=== PATIENT | male | born 1975 | race Two or more races ===

== ENCOUNTER 2017-02-26 05:08 | Inpatient (IN) | payer OTHER ==
[~2017-02-26] VITALS: Ht 172.7 cm; Wt 85.7 kg
[2017-02-26] VITALS (14 sets, daily range): BP systolic 117–136; BP diastolic 74–96
[~2017-02-26 05:08] MED LIST: NICOMIDE TABLE1 EAC1 PO
[2017-02-26] MEDS ORDERED: ceFAZolin sod 2 GM in D5W 55 ML IVPB ONE (06:00)
[2017-02-26] MEDS ORDERED: LR 1000ml 1,000 ML IVLG SCH (06:11)
--- NOTE | 2017-02-26 06:11 | Anethesia Preoperative Eval ---
Anesthesia Pre-op PMH/ROS General Date of Evaluation: Feb 26, 2017 Time of Evaluation: 06:56 Anesthesiologist: Olamide ASA Score: ASA 2 Mallampati Score Class I : Soft palate, uvula, fauces, pillars visible Class II: Soft palate, uvula, fauces visible Class III: Soft palate, base of uvula visible Class IV: Only hard plate visible Mallampati Classification: Class II Surgeon: Adryan Diagnosis: Back Pain Surgical Procedure: ALIF L5-S1, PSF L5-S1 Anesthesia History: none Family History: no anesthesia problems Allergies: Coded Allergies: METHYLISOTHIAZOLINONE (Verified Allergy, Severe, 02/26/17) skin rash BACITRACIN (Verified Allergy, Intermediate, 02/26/17) SKIN RASH COBALT CHLORIDE (Verified Allergy, Intermediate, 02/26/17) SKIN RASH SULFA (SULFONAMIDE ANTIBIOTICS) (Verified Allergy, Unknown, 03/24/15) Medications: see eMAR Past Medical History Cardiovascular: Reports: HTN Pulmonary: Reports: asthma PSxH Narrative: Lumbar Spine Sx 2015 Anesthesia Pre-op Phys. Exam Physician Exam Last Vital Signs Date Time Temp Pulse Resp B/P (MAP) Pulse Ox O2 Delivery O2 Flow Rate FiO2 02/26/17 05:59 97.6 60 20 117/74 100 Room Air Constitutional: NAD Neurologic: CN 2-12 intact Cardiovascular: RRR Respiratory: CTA Gastrointestinal: S/NT/ND Airway Exam Mallampati Score: Class II MO: full ROM: full Teeth: intact Anesthesia Pre-op A/P Risk Assessment & Plan Assessment: ASA 2 Plan: GA, BIS, Glidescope Status Change Before Surgery: No Pre-Antibiotics Dru grams Ancef IV Given Within 1 Hr of Incision: Yes Time Given: 07:11 Ike Quiñonez MD Feb 26, 2017 06:11
[2017-02-26] MEDS ORDERED: Ketorolac 30mg Inj IV PRN (06:15)
[2017-02-26] MEDS ORDERED: DiphenhydrAMINE 50mg/ml Inj IVP PRN (06:15)
[2017-02-26] MEDS ORDERED: Thrombin 5000 units TOPIC ONE (06:15)
[2017-02-26] MEDS ORDERED: Atropine Inj 1mg/10ml Syr IV PRN (06:15)
[2017-02-26] MEDS ORDERED: Midazolam 2mg/2ml Inj IVP PRN (06:15)
[2017-02-26] MEDS ORDERED: Norco 7.5mg/325mg tab ORAL PRN ×3 (06:15→07:15)
[2017-02-26] MEDS ORDERED: Norco 5mg/325mg tab ORAL PRN (06:15)
[2017-02-26] MEDS ORDERED: oxyCODONE HCL/Acetaminophen 5/325mg ORAL PRN (06:15)
[2017-02-26] MEDS ORDERED: Metoclopramide 10mg/2ml Inj IVP PRN ×2 (06:15→07:15)
[2017-02-26] MEDS ORDERED: fentaNYL 100 mcg/2 mL IV PRN (06:15)
[2017-02-26] MEDS ORDERED: LORazepam Inj 2mg/ml 1ml IV PRN (06:15)
[2017-02-26] MEDS ORDERED: Hydromorphone 0.5mg/0.5ml inj IVP PRN (06:15)
[2017-02-26] MEDS ORDERED: Vancomycin 1gm inj IVPB ONE (06:15)
[2017-02-26] MEDS ORDERED: Ketorolac 60mg Inj IV PRN (06:15)
[2017-02-26] MEDS ORDERED: Bacitracin 50000 Units Vial ONE (06:15)
[2017-02-26] MEDS ORDERED: Surgicel 4in x 8in TOPIC ONE (06:17)
[2017-02-26] MEDS ORDERED: Bupivacaine 0.5% Inj 30 ml vial INJ ONE (06:17)
[2017-02-26] MEDS ORDERED: PRAVASTATIN SOD10 M1 ORAL (06:22)
[2017-02-26] MEDS ORDERED: CEPHALEXIN500 M1 ORAL (06:22)
[2017-02-26] MEDS ORDERED: Heparin 5000 units/ml inj ONE (06:30)
[2017-02-26] MEDS ORDERED: Acetaminophen (Non formulary) 100 ML IV ONE (06:51)
[2017-02-26] MEDS ORDERED: Glycopyrrolate 0.2mg/ml 1ml Vial ONE (07:00)
[2017-02-26] MEDS ORDERED: Lidocaine 1% Plain 30 ml INJ ONE (07:00)
[2017-02-26] MEDS ORDERED: Neostigmine 1mg/ml 10ml Inj ONE (07:00)
[2017-02-26] MEDS ORDERED: LR 1000ml ONE (07:00)
[2017-02-26] MEDS ORDERED: Sterile Water Irrig 1000ml IRRIG ONE (07:00)
[2017-02-26] MEDS ORDERED: Propofol 1,000mg/ 100ml btl IV ONE (07:00)
[2017-02-26] MEDS ORDERED: Zemuron 50mg/5ml Inj IV ONE (07:00)
[2017-02-26] MEDS ORDERED: fentaNYL 100 mcg/2 mL IV ONE (07:00)
[2017-02-26] MEDS ORDERED: NS Irrig 1000ml ONE (07:00)
[2017-02-26] MEDS ORDERED: Labetalol 5mg/ml 20ml vial IV ONE (07:00)
[2017-02-26] MEDS ORDERED: Dexamethasone 4mg/ml vial ONE (07:00)
--- NOTE | 2017-02-26 07:10 | Pre-Procedure Note/Attestation ---
Pre-Procedure Note/Attestation Complete Prior to Procedure Planned Procedure: not applicable Procedure Narrative: Stage 1 Anterior Lumbar Interbody Fusion of L5S1 with bone morphogenetic protein and allograft Stage 2 Posterior newton griffin osteotomy pedicle screw fixation Indications for Procedure Pre-Operative Diagnosis: herniation L5S1 Attestation I attest that I discussed the nature of the procedure; its benefits; risks and complications; and alternatives (and the risks and benefits of such alternatives ), prior to the procedure, with the patient (or the patient's legal footwear sales representative). I attest that, if there was a reasonable possibility of needing a blood transfusion, the patient (or the patient's legal footwear sales representative) was given the [place] [employer] standardized written summary, pursuant to the Gustavo Deshler Blood Safety Act ([place] Health and Safety Code # 1645, as amended). I attest that I re-evaluated the patient just prior to the surgery and that there has been no change in the patient's H&P, except as documented below: FEDE SONI Feb 26, 2017 07:10
--- NOTE | 2017-02-26 07:12 | Brief Operative Note ---
Immediate Post Operative Note Operative Note Chief Complaint: back and leg pains left sided Pre-op Diagnosis: herniation L5S1 Procedure: Stage 1 Anterior Lumbar Interbody Fusion of L5S1 with bone morphogenetic protein and allograft Stage 2 Posterior newton griffin osteotomy pedicle screw fixation Post-op Diagnosis: same as pre-op Findings: consistent w/pre-op dx studies Surgeon: NAE Remote Coders: Danish Weldon Anesthesia: general Specimen: none Complications: none Estimated Blood Loss: minimal Drains: none Implant(s) used?: Yes - Nuvasive brigjulio, synthes 4x45 mm screws FEDE SONI Feb 26, 2017 07:12
[2017-02-26] MEDS ORDERED: Naloxone 0.4mg/ml Inj IVP PRN (07:15)
[2017-02-26] MEDS ORDERED: HYDROmorphone 1mg/ml Carpuject IVP PRN (07:15)
[2017-02-26] MEDS ORDERED: Milk of Magnesia 30ml Ud ORAL PRN (07:15)
[2017-02-26] MEDS ORDERED: HYDROmorphone 1mg/ml Carpuject SUBQ PRN (07:15)
[2017-02-26] MEDS ORDERED: Chloraseptic Spray 20mL Bottle ORAL PRN (07:15)
--- NOTE | 2017-02-26 07:43 | Immediate Post-Op Evaluation ---
Immediate Post-Op Evalulation Immediate Post-Op Evalulation Procedure: ALIF L5-S1, PSF L5-S1 Date of Evaluation: Feb 26, 2017 Time of Evaluation: 11:58 IV Fluids: 1000 LR Blood Products: 0 Estimated Blood Loss: 75 Urinary Output: 200 Blood Pressure Systolic: 135 Blood Pressure Diastolic: 74 Pulse Rate: 87 Respiratory Rate: 16 O2 Sat by Pulse Oximetry: 100 Temperature (Fahrenheit): 97.9 Pain Score (1-10): 3 Nausea: No Vomiting: No Complications 0 Patient Status: awake, reacts, patent, extubated, none Hydration Status: adequate Dru Grams Ancef IV Given Within 1 Hr of Incision: Yes Time Given: 07:11 Ike Quiñonez MD Feb 26, 2017 07:43
--- NOTE | 2017-02-26 12:08 | Diagnostic Imaging Report ---
Indication: PAIN, intraoperative Technique: Intraoperative images Comparison: None Findings: Initial image demonstrates surgical needle projected at the anterior aspect of what is presumably L5-S1 disc. Subsequent images document anterior fusion and posterior fusion at L5-S1 Impression: Intraoperative imaging, as described
--- NOTE | 2017-02-26 13:00 | Operative Note - Dictated ---
DATE OF OPERATION: 02/26/2017 SURGEONS: 1. Manpreet Weldon M.D. (for the approach). 2. Miguel Cornelius M.D. (for the spine procedure). ANESTHESIOLOGIST: Ike Quiñonez M.D. ANESTHESIA: General endotracheal. PREOPERATIVE DIAGNOSIS: Disk disease at L5-S1. POSTOPERATIVE DIAGNOSIS: Disk disease at L5-S1. OPERATIVE PROCEDURES: 1. Muscle sparing anterior abdominal extraperitoneal approach for anterior lumbar interbody fusion, L5-S1 (one interspace). 2. Mobilization of left iliac artery. 3. Mobilization of left iliac vein. 4. Exposure of the anterior surface of the spine at L5-S1 (one interspace). INFORMED CONSENT: The procedure of the anterior access for an anterior interbody fusion was explained in detail to the patient preoperatively and repeated in the preoperative holding area by myself and Dr. Cornelius. The risks including hemorrhage, infection, vascular injury, ureteral injury, nerve injury, visceral injury, retrograde ejaculation, and lymphedema were explained in detail. The patient stated that he understood the procedure, its rationale and risks. He had no further questions and accepted the procedures outlined above. Background information, indications for surgery, operative findings, and specimens removed will be contained in Dr. Cornelius's operative report. OPERATIVE FINDINGS PERTINENT TO THE ACCESS: All retroperitoneal structures were normal. OPERATIVE PROCEDURE: The patient was brought to the operating room in stable condition. Monitoring was instituted with arterial line, ECG, O2 saturation monitor, and blood pressure cuff. A pulse oximeter was placed on the left foot to monitor circulation to the left lower extremity. The patient was induced with anesthesia without any difficulty. The patient was prepared and draped in sterile fashion. Using x-ray and fluoroscopy, the level of the L5-S1 disk was marked on the skin. A left lower quadrant incision was performed from the midline to the edge of the left rectus muscle, approximately one-third [address] the way up from the pubis to the umbilicus. The incision was carried down through the subcutaneous tissue to the rectus fascia. The rectus fascia was incised with the cautery with extension into the fibers of the external oblique aponeurosis. Elevation of the rectus fascia away from the anterior surface of the muscle was carried out for a distance of approximately 5 cm both cephalad and caudad. This allowed for retraction of the rectus muscle both medially and laterally in order to obtain direct A-P access to the spine. The inferior epigastric vessels were identified and preserved. The posterior rectus sheath did not require any incision and was carefully from the peritoneum, taking care not to enter the peritoneal cavity. The peritoneum was bluntly dissected away from the undersurface of the internal oblique muscle. Careful blunt dissection was used to elevate the peritoneum anteriorly until the psoas muscle was identified. The ureter was also identified and swept upwards with the peritoneum and its contents. Further dissection was used to expose the anterior surface of the left common iliac artery. A Jaquez retractor was placed into the retroperitoneum lateral to the rectus muscle. A lap sponge was inserted over the psoas muscle and pushed superiorly to keep the abdominal contents off the way with a Lenox retractor. Careful sharp and blunt dissection was used to expose the entire length of the common iliac artery to its origin at the aortic bifurcation. Dissection along the medial wall of the artery was carried out to expose the common iliac vein, which lies under and slightly to the right of the artery. With extreme care, the vein was also exposed in its entirety. Deep dissection was carried out to expose the L5-S1 disk space. The middle sacral vessels were identified and carefully ligated and cauterized proximally and distally and transected. Any other venous tributaries in the area were controlled with clips and/or cautery and then transected. Mobilization of the iliac vessels below the bifurcation was carried out for proper visualization of the anterior surface of the spine. This was done with careful blunt dissection in order to peel away the left common iliac vein from the anterior longitudinal ligament, to which it was very closely approximated. The dissection along the anterior surface of the spine was carried out bluntly and without the use of cautery to preserve the sympathetic plexus, which lies anteriorly, overlying the aortic bifurcation and extends inferiorly towards the sacral hollow. After proper skeletonization and mobilization of the vessels and preservation of all vital structures, the Jaquez-Katherin retractor combination was removed and the table-held retractor was deployed. The retractor blades were inserted, with rectus muscle now retracted laterally, first on the right to expose that side of the disk space, and then on the left to keep the iliac vessels out of the way. Third and fourth retractor blades were placed inferiorly and superiorly. This allowed complete exposure and direct A-P approach to the anterior surface of the spine at L5-S1. A needle was inserted into the disk and an x-ray was taken to verify the midline and the level. Dr. Cornelius proceeded to perform the diskectomy, partial vertebrectomy, and fusion using the appropriate technique and hardware. After the diskectomy and fusion were completed, irrigation with antibiotic solution was carried out. The retractor blades were removed and the integrity of the iliac vessels was checked to make sure that there was no tear or thrombosis of the vein and that there was adequate flow through the artery with no evidence of spasm or thrombosis. A further check for hemostasis was made and the integrity of the ureter was verified. The peritoneum was allowed to return to its anatomical position. The anterior rectus sheath was closed with a continuous suture of #1 Vicryl. The subcutaneous tissue and skin were closed with a continuous subcuticular suture of 2-0 Vicryl. Steri-Strips and a sterile dressing were applied. Final sponge, needle, and instrument counts were verified as correct x2. Manual and visual sweeps were correct. Estimated blood loss was minimal and approximately 15 mL. There were good dorsalis pedis and posterior tibial pulses in both feet. The pulse oximeter on the left foot showed 100% oxygen saturation with a triphasic waveform consistent with a preoperative baseline. The patient remained in the operating room, under anesthesia in a stable condition for further surgery. Manpreet Weldon M.D. DR: RONEL JOB#: [id number] CC: Miguel Cornelius M.D.; Fax#: [phone] [facility]
[2017-02-26] MEDS: Dexamethasone 4mg/ml vial IVP SCH ×2 (14:30→21:54)
[2017-02-26] MEDS: NS w/KCl 20mEq 1,000 ML IV SCH ×2 (14:30→23:47)
[2017-02-26] MEDS: ceFAZolin sod 1 GM in D5W 55 ML IV SCH ×2 (15:32→23:47)
[2017-02-26] MEDS: Docusate 100mg cap ORAL SCH (17:21)
--- NOTE | 2017-02-26 17:42 | Consultation ---
History of Present Illness General Date patient seen: Feb 26, 2017 Time patient seen: 17:41 Chief Complaint: intractable lower back pain w/ radiculopathy Referring physician: Dr. Cornelius Reason for Consultation: med mgmt Present Illness HPI 42y/o male with pmh of HLD, lumbar disc herniation L5-S1 who presents s/p Stage 1 Anterior Lumbar Interbody Fusion of L5S1 with bone morphogenetic protein and allograft Stage 2 Posterior newton griffin osteotomy pedicle screw fixation earlier today. Postop pain appears well-controlled. Denies f/c, n/v, d/c, chest pain, SOB. Allergies: Coded Allergies: METHYLISOTHIAZOLINONE (Verified Allergy, Severe, 02/26/17) skin rash BACITRACIN (Verified Allergy, Intermediate, 02/26/17) SKIN RASH COBALT CHLORIDE (Verified Allergy, Intermediate, 02/26/17) SKIN RASH SULFA (SULFONAMIDE ANTIBIOTICS) (Verified Allergy, Unknown, 03/24/15) Medication History Scheduled Pravastatin Sod (Pravastatin Sod), 10 MG ORAL BEDTIME, (Reported) Scheduled PRN Hydrocodone Bit/Acetaminophen 10-325* (Abell 10-325*), 1 TAB ORAL Q8HR PRN for For Pain, (Reported) Discontinued Medications Cephalexin* (Cephalexin*), 500 MG ORAL EVERY 6 HOURS, (Reported) Discontinued Reason: Pt stopped taking med Lmefolate/B3/Jovon/Zn/Nimco/Chrom (Nicomide Tablet), 1 EACH PO BID, (Reported) Discontinued Reason: Pt stopped taking med Patient History History Provided By: Patient, Medical Record, PMD Healthcare decision maker MAGDY- Resuscitation status Full Code Advanced Directive on File Past Medical/Surgical History Past Medical/Surgical History: (1) HLD (hyperlipidemia) (2) HNP (herniated nucleus pulposus), lumbar Family History Family History: (1) No significant family history Social History Social History: (1) No significant social history Review of Systems ROS Narrative CONSTITUTIONAL: No weight loss, fever, chills, weakness or fatigue. HEENT: Eyes: No visual loss, blurred vision, double vision or yellow sclerae. Ears, Nose, Throat: No hearing loss, sneezing, congestion, runny nose or sore throat. SKIN: No rash or itching. CARDIOVASCULAR: No chest pain, chest pressure or chest discomfort. No palpitations or edema. RESPIRATORY: No shortness of breath, cough or sputum. GASTROINTESTINAL: No anorexia, nausea, vomiting or diarrhea. No abdominal pain or blood. NEUROLOGICAL: No headache, dizziness, syncope, paralysis, ataxia, numbness or tingling in the extremities. No change in bowel or bladder control. MUSCULOSKELETAL: No muscle, back pain, joint pain or stiffness. HEMATOLOGIC: No anemia, bleeding or bruising. LYMPHATICS: No enlarged nodes. No history of splenectomy. PSYCHIATRIC: No history of depression or anxiety. ENDOCRINOLOGIC: No reports of sweating, cold or heat intolerance. No polyuria or polydipsia. ALLERGIES: No history of asthma, hives, eczema or rhinitis. Physical Exam Physical Exam Narrative General: alert, cooperative, no distress, appears stated age Head: normocephalic, without obvious abnormality, atraumatic Eyes: conjunctivae/corneas clear. PERRL, EOM's intact Throat: lips, mucosa, and tongue normal. MMM Neck: supple, symmetrical, trachea midline, and no JVD Lungs: clear to auscultation bilaterally Heart: regular rate and rhythm, S1, S2 normal, no murmur, click, rub or gallop Abdomen: soft, non-tender, non-distended, bowel sounds normal; no masses or organomegaly Extremities: extremities normal, atraumatic, no cyanosis or edema Pulses: 2+ and symmetric Skin: skin color, texture, turgor normal; dressing c/d/i Neurologic: grossly normal, no focal deficits Last 24 Hour Vital Signs Date Time Temp Pulse Resp B/P (MAP) Pulse Ox O2 Delivery O2 Flow Rate FiO2 02/26/17 16:00 98.1 97 19 133/86 99 Nasal Cannula 3.0 02/26/17 13:30 98.3 93 19 136/90 99 Nasal Cannula 3.0 02/26/17 13:25 98.0 82 17 129/78 100 Nasal Cannula 3.0 02/26/17 13:00 82 16 128/86 100 Nasal Cannula 3.0 02/26/17 12:45 83 15 124/82 100 Nasal Cannula 3.0 02/26/17 12:32 98.0 02/26/17 12:30 82 14 132/96 100 Nasal Cannula 3.0 02/26/17 12:15 83 15 130/79 100 Nasal Cannula 3.0 02/26/17 12:00 82 16 120/89 100 Simple Mask 6.0 02/26/17 11:55 78 15 121/91 100 Simple Mask 6.0 02/26/17 11:50 87 17 129/94 100 Simple Mask 6.0 02/26/17 11:48 87 16 100 02/26/17 11:47 97.9 88 16 135/74 100 Simple Mask 6.0 02/26/17 05:59 97.6 60 20 117/74 100 Room Air Intake and Output 02/26/17 02/27/17 19:00 07:00 Intake Total 1800 ml Output Total 675 ml Balance 1125 ml Intake IV Total 1800 ml Output Urine Total 600 ml Estimated Blood Loss 75 ml # Voids 1 Height (Feet): 5 Height (Inches): 8.00 Weight (Pounds): 189 Medications Current Medications Medications (Trade) Dose Ordered Sig/Yunier Route PRN Reason Start Time Stop Time Status Last Admin Dose Admin Acetaminophen (Tylenol) 650 mg Q4H PRN ORAL headache or temp>101 02/26/17 07:15 03/28/17 07:14 Acetaminophen/ Hydrocodone Bitart (Abell 5/325) 1 tab Q3H PRN ORAL pain score 1-3 02/26/17 07:15 03/05/17 07:14 Acetaminophen/ Hydrocodone Bitart (Abell 7.5/325) 1 ea Q3H PRN ORAL pain score 4-6 02/26/17 07:15 03/05/17 07:14 Acetaminophen/ Hydrocodone Bitart (Abell 7.5/325) 2 ea Q3H PRN ORAL pain scale 7-10 02/26/17 07:15 03/05/17 07:14 Carisoprodol (Soma) 350 mg TIDPRN PRN ORAL SPASM 02/26/17 07:15 03/28/17 07:14 Cefazolin Sodium 1 gm/Dextrose 55 ml @ 110 mls/hr Q8H IV 02/26/17 15:00 02/27/17 07:29 02/26/17 15:32 Cetylpyridinium Chloride (Cepacol) 1 lozenge EVERY 2 HOURS PRN SHIN To Patient Comfort 02/26/17 07:15 03/28/17 07:14 Dexamethasone Sodium Phosphate (Decadron 4mg/ml vial) 4 mg Q6H IVP 02/26/17 14:00 02/27/17 08:01 02/26/17 14:30 Docusate Sodium (Colace) 100 mg TWICE A DAY ORAL 02/26/17 18:00 03/28/17 17:59 02/26/17 17:21 Hydromorphone HCl (Dilaudid) 1 mg Q2H PRN IVP Breakthrough Pain 02/26/17 07:15 03/05/17 07:14 Hydromorphone HCl (Dilaudid) 1 mg Q4H PRN SUBQ Mild Pain (Pain Scale 1-3) 02/26/17 07:15 03/05/17 07:14 Hydromorphone HCl (Dilaudid) 2 mg Q3H PRN SUBQ Severe Pain (Pain Scale 7-10) 02/26/17 07:15 03/05/17 07:14 Hydromorphone HCl (Dilaudid) 2 mg Q4H PRN SUBQ Moderate Pain (Pain Scale 4-6) 02/26/17 07:15 03/05/17 07:14 Magnesium Hydroxide (Mom) 30 ml QIDPRN PRN ORAL Constipation 02/26/17 07:15 03/28/17 07:14 Metoclopramide HCl (Reglan) 10 mg Q6H PRN IVP Nausea & Vomiting 02/26/17 07:15 03/28/17 07:14 Naloxone HCl (Narcan) 0.1 mg PRN PRN IVP RR<12/min, pt unarousable 02/26/17 07:15 03/28/17 07:14 Ondansetron HCl (Zofran) 4 mg Q6H PRN IVP Nausea & Vomiting 02/26/17 07:15 03/28/17 07:14 Phenol/Menthol (Chloraseptic) 1 spray Q3H PRN ORAL To Patient Comfort 02/26/17 07:15 03/28/17 07:14 Pravastatin Sodium (Pravachol) 10 mg BEDTIME ORAL 02/26/17 21:00 03/28/17 20:59 Prochlorperazine (Compazine) 10 mg Q6H PRN IVP Nausea & Vomiting 02/26/17 07:15 03/28/17 07:14 Sodium Chloride 1,000 ml @ 100 mls/hr Q10H IV 02/26/17 14:30 03/28/17 14:29 02/26/17 14:30 Temazepam (Restoril) 15 mg HSPRN PRN ORAL Insomnia 02/26/17 07:15 03/05/17 07:14 Assessment/Plan Problem List: (1) HLD (hyperlipidemia) ICD Codes: E78.5 - Hyperlipidemia, unspecified SNOMED: 42249409 (2) HNP (herniated nucleus pulposus), lumbar ICD Codes: M51.26 - Other intervertebral disc displacement, lumbar region SNOMED: 40032819 Status: stable Assessment/Plan Appreicate surgery rec's s/p Stage 1 Anterior Lumbar Interbody Fusion of L5S1 with bone morphogenetic protein and allograft Stage 2 Posterior newton griffin osteotomy pedicle screw fixation on 02/26/17 Post operative recommendations include: - encourage mobilization/ambulation - encourage incentive spirometry to optimize pulmonary hygiene - DVT/GI prophylaxis as appropriate--SCDs - PT/OT - pain control, supportive care, bowel regimen D/w pt/family, RN, SW/CM, surgery regarding mgmt and dispo Dee Crawford M.D. Feb 26, 2017 17:42
[2017-02-27] VITALS: BP 107/68
[2017-02-27] MEDS: Dexamethasone 4mg/ml vial IVP SCH ×2 (02:41→08:36)
[2017-02-27 04:00] VITALS: BP 106/60
[2017-02-27] MEDS: ceFAZolin sod 1 GM in D5W 55 ML IV SCH (05:53)
[2017-02-27 08:00] VITALS: BP 124/72
--- NOTE | 2017-02-27 08:16 | Operative Note - Dictated ---
DATE OF OPERATION: 02/26/2017 Stage 1 of 2. SURGEON: Miguel Cornelius M.D., Orthopaedic Spine Surgeon [employer] SURGEON: Manpreet Weldon M.D., vascular surgeon. ANESTHESIA: General endotracheal anesthesia. PREOPERATIVE DIAGNOSES: 1. Intractable back pain. 2. Intractable leg pain. 3. Worsening radiculopathy. 4. Weakness. 5. Herniated nucleus pulposus, L5-S1 herniation. 6. Neural foraminal stenosis, L5-S1 herniation. POSTOPERATIVE DIAGNOSES: 1. Intractable back pain. 2. Intractable leg pain. 3. Worsening radiculopathy. 4. Weakness. 5. Herniated nucleus pulposus, L5-S1 herniation. 6. Neural foraminal stenosis, L5-S1 herniation. PROCEDURES PERFORMED: 1. Radical anterior lumbar intervertebral L5-S1 discectomy. 2. Anterior lumbar interbody fusion using NuVasive PEEK cage size 14 mm, 8 degrees and bone morphogenetic protein with allograft Grady bone. 3. Anterior lumbar plating and fixation at L5-S1 using 4 screws of 25 mm length. 4. Anterior retroperitoneal exposure. 5. Supervision and interpretation of intraoperative fluoroscopy. 6. Supervision and interpretation of somatosensory-evoked potential and free running EMG monitoring. ESTIMATED BLOOD LOSS: 150 mL COMPLICATIONS: None. INDICATIONS FOR THE PROCEDURE: The patient is a 42-year-old male who presents for intractable back pain and radiculopathy which is well documented in our clinical chart and records. We had a long discussion with Smooth regarding definitive surgical treatment options. We had a long discussion with the patient regarding the risks, alternatives, and benefits of procedure. Our description of the risks included a discussion in person as well as a signed consent which detailed all pertinent risks and the procedure itself. Briefly, our discussion included but was not limited to infection, bleeding, pseudarthrosis, spinal cord injury, neurovascular injury, dural tear, CSF leak, neuropathy, paralysis, permanent weakness/drop foot, paresthesias, blindness, palsy and weakness. The patient understood there may be a need for revision surgery or additional procedures. Approach-related complications including dysphonia, dysphagia, blindness, permanent vocal cord and neural injury, hematoma, swallowing and breathing difficulty; medical complications including liver, kidney, shock, and cardiopulmonary failure; anesthesia complications including , swelling, damage to the musculature, larynx , esophagus, trachea, blood vessels and muscles and lungs during this surgical procedure. Injury to deeper structures may be temporary or permanent. The patient understood these and elected to proceed. A written and verbal consent was given. We discussed the pros and cons of all the alternatives. We discussed the uncertainties associated with the decision. Afterwards, I assessed the patients understanding and explored their preferences. All questions were answered and no guarantees were given. Medical clearance was obtained prior to surgery. OPERATIVE FINDINGS: A broad-based disc herniation at L5-S1 was encountered, which encroached on the thecal sac and neural foraminal elements therein. This L5-S1 disc was acute in nature and not calcified. It was mobile and free floating and resected easily. There was also neural foraminal stenosis at L5-S1. DESCRIPTION OF PROCEDURE: Under the benefit of general endotracheal anesthesia and with the assistance of the entire operative team, the patient was moved from the rney onto the operative table in the supine position on a radiolucent frame. The head was secured and positioned appropriately. Bilateral arms were secured with Gel Pads and foam and all bony prominences were padded. The bilateral lower extremity SCD and CHRISTIAN hose were placed for DVT prophylaxis. A surgical timeout was called, which corroborated our planned procedure. Preoperative antibiotics were administered within 30 minutes of the incision for prophylaxis. Using lateral radiography, the operative levels were delineated. An incision was marked based on our interpretation of lateral radiography and afterwards, the body was prepped and draped in the usual sterile manner. The family was notified that we were ready to commence surgery and were called in the waiting room hourly for updates. An incision was based on our lateral fluoroscopic image to center the incision at the L5-S1 interspace. The wound was prepped and draped in the usual sterile fashion. Using a scalpel, a standard retroperitoneal exposure was performed by our vascular surgeon Dr. Manpreet Weldon and this is delineated in a separate operative note. After appropriate exposure at the L5-S1 disc space, we next turned our attention towards our radical discectomy. This was performed in standard fashion first beginning with a gentle mobilization of all superficial soft tissue overlying the disc space with Kittners. After this was performed we marked our midline and confirmed our disc space on AP and lateral fluoroscopy. Next, using a 10 blade long-handled scalpel, the disc was resected from the endplates in a box discectomy technique. Next using elevators the disc was mobilized off each endplate. After this, using a large Leksell rongeurs, the entire disc was removed from the intervertebral space. All residual disc and cartilaginous endplates were resected using a combination of small and medium curettage, pituitaries, size 4 and size 6 Kerrison rongeurs. Next, the endplates were distracted in a parallel fashion using the Azar hog killer and a 7.5 Thandle. At this point the PLL was resected using a small curette and a Kerrison 4 rongeur. Next the endplates were resected down to bleeding subchondral bone using a ring and box curette. For any residual bleeding which we encountered at this point, this was maintained and controlled with a combination of FloSeal, Gelfoam and bipolar cautery. Afterwards, Tisseel was used to seal the discectomy site dorsally. Next I then trialed the interspace for height, width and depth. This was confirmed on fluoroscopy and, once satisfied with our fit, we loaded and inserted a NuVasive PEEK cage size 14 mm, 8 degrees with bone morphogenetic protein and with allograft Grady bone under AP and lateral fluoroscopy. AP and lateral fluoroscopy confirmed excellent placement at the L5-S1 interspace. Afterwards, we turned our attention towards plating from the NuVasive Brigade Interlock system. This anterior lumbar plating and fixation at L5-S1 using 4 screws of 25 mm length. Final radiographs confirmed appropriate placement of all hardware, screws and our PEEK cages along with a yarsanism of the lumbar lordosis. Afterwards, Tisseel was used to seal the discectomy site ventrally. FloSeal and Zosyn antibiotics were placed directly on the anterior fusion site. The wounds were copiously irrigated with antibiotic impregnated saline. Afterwards, FloSeal was placed to address residual bleeding. Powdered antibiotics were directly poured into the wound to provide for direct antibiosis. Next, I turned my attention to closure. Fascial closure was performed with 1-0 Vicryl suture. Subcutaneous tissues were reapproximated with 2-0 Vicryl. The superficial subcutaneous skin was closed with a running Monocryl and Dermabond. Dressings consisted of Tegaderm and 4 x 4 gauze. The patient tolerated the procedure well and after discussion with our vascular surgeon and our anesthesiologist, we made the determination to proceed with stage 2 of 2 our posterior based approach. The details of stage 1 of the surgery were related to the patients family/representatives upon the conclusion of the procedure in the family waiting room. Stage 2 of 2. DATE OF OPERATION: 02/28/17 SURGEON: Miguel Cornelius M.D., Orthopaedic Spine Surgeon [employer]LE [employer] MAKER: SANDRINE Glasgow. ANESTHESIA: General endotracheal anesthesia. PREOPERATIVE DIAGNOSES: 1. Intractable back pain. 2. Intractable leg pain. 3. Worsening radiculopathy. 4. Weakness. 5. Herniated nucleus pulposus, L5-S1 herniation. 6. Neural foraminal stenosis, L5-S1. POSTOPERATIVE DIAGNOSES: 1. Intractable back pain. 2. Intractable leg pain. 3. Worsening radiculopathy. 4. Weakness. 5. Herniated nucleus pulposus, L5-S1 herniation. 6. Neural foraminal stenosis, L5-S1. PROCEDURES PERFORMED: 1. Auguste laminectomy/Toscano-Lira osteotomy, and complete left sided facetectomy at L5-S1. 2. L5-S1 posterolateral fusion using allograft bone, local autograft, and residual bone morphogenetic protein. 3. Percutaneous pedicle screw fixation at L5-S1 using Synthes, 2 screws of 45 mm length x 6 mm diameter. 4. Confirmation of pedicle screws placement using neural monitoring. 5. Use of intraoperative microscope. 6. Supervision and interpretation of intraoperative fluoroscopy. 7. Supervision and interpretation of somatosensory-evoked potential and free running EMG monitoring. ESTIMATED BLOOD LOSS: total was 150 mL. COMPLICATIONS: None. INDICATIONS FOR THE PROCEDURE: The patient is a 42-year-old male who presents for Stage 2 in regards to their intractable back pain and radiculopathy. This operative note details the second stage of our surgery. Prior to surgery we had a long discussion with Smooth regarding definitive surgical treatment options. We had a long discussion with the patient regarding the risks, alternatives, and benefits of procedure. Our description of the risks included a discussion in person as well as a signed consent which detailed all pertinent risks and the procedure itself. Briefly, our discussion included but was not limited to infection, bleeding, pseudarthrosis, spinal cord injury, neurovascular injury, dural tear, CSF leak, neuropathy, paralysis, permanent weakness/drop foot, paresthesias, blindness, palsy and weakness. The patient understood there may be a need for revision surgery or additional procedures. Approach related complications including dysphonia, dysphagia, blindness, permanent vocal cord and neural injury, hematoma, swallowing and breathing difficulty; medical complications including liver, kidney, shock, and cardiopulmonary failure; anesthesia complications including , swelling, damage to the musculature, larynx, esophagus, trachea, blood vessels and muscles and lungs during this surgical procedure. Injury to deeper structures may be temporary or permanent. The patient understood these and elected to proceed. A written and verbal consent was given. We discussed the pros and cons of all the alternatives. We discussed the uncertainties associated with the decision. Afterwards I assessed the patients understanding and explored their preferences. All questions were answered and no guarantees were given. This now delineates the second stage of the procedure. OPERATIVE FINDINGS: A significant amount of neural foraminal encroachment along the thecal sac and neural foraminal elements therein. This neural foraminal stenosis at L5-S1 was more than appreciated on the MRI. DESCRIPTION OF PROCEDURE: Under the benefit of general endotracheal anesthesia and with the assistance of the entire operative team, the patient was moved from the radiolucent operative table in the prone position onto a Aurelio frame. The head was secured and positioned appropriately. Bilateral arms were secured with Gel Pads and foam and all bony prominences were padded. The bilateral lower extremity SCD and CHRISTIAN hose we replaced for DVT prophylaxis. A surgical timeout was called which corroborated our planned procedure. Preoperative antibiotics were administered within 30 minutes of the incision for prophylaxis. Using lateral radiography, the operative levels were delineated. An incision was marked based on our interpretation of anterior posterior and lateral radiography and afterwards the body was prepped and draped in the usual sterile manner. The family was notified that we were ready to commence surgery and were called in the waiting room hourly for updates. An incision was based on our anterior posterior and lateral fluoroscopic image to center the incision at the L5-S1 interspace. The wound was prepped and draped in the usual sterile fashion. Using a scalpel, a midline incision was made and the subcutaneous tissue was mobilized so that within the fascia two Karl based incisions were made, one incision on the left side focusing on his pedicle at L5-S1 through a percutaneous stab wound approach. All pedicles were cannulated in the exact same fashion for each level. This was performed in the following manner. The second incision was made slightly off midline and geared towards his L5-S1 interspace approached. Using Jamshidi needles under direct AP and lateral fluoroscopic visualization I approached the L5-S1 pedicles with Jamshidi needles making sure to leave clearance along the medial pedicle boundary/wall, and next we advanced our bilateral pedicle screw entry points under AP and lateral fluoroscopy at both our pedicles bilaterally. Next, percutaneous screws were loaded on the left hand side . Screws were inserted in percutaneous fashion and afterwards these screws were stimulated. Next, a lauren was lordosed and placed percutaneously through the incision. Next, we turned our attention to our Tocsano-Lira type osteotomy, facetectomy and decompression. This was performed at each level in the exact same fashion. Based on AP and lateral fluoroscopy, we centered this incision over the facet joints at L?? of the contralateral side. This was taken down through the skin and subcutaneous tissues until the overlying pars facet joints of L5-S1 were visualized under microscopic visualization. There was severe pressure on this neural foramina as palpated with the Martin dental and a Haley ball probe. The pars was then visualized on the contralateral side and this was carefully resected along with the lamina and superior articular process using a Progeniq Arpit AM8 drill bit. This was completely resected using a Toscano-Lira type osteotomy and medial laminar removal and facetectomy. There was a significant amount of bleeding which we encountered at this point and this was maintained and controlled with a combination of FloSeal, Gelfoam and bipolar cautery. After complete resection of the facet joints, we noticed the lateral thecal sac margin and the neural elements . Next, I turned my attention to the stimulation of pedicle screws. All pedicle screws were stimulated with somatosensory evoked potentials ranging over 20 milliampere with no response. Afterwards percutaneous rods from the Synthes pedicle screw system were inserted and placed percutaneously and locking caps were placed. Final radiographs confirmed appropriate placement of all hardware, screws and our PEEK cages along with a yarsanism of the lumbar lordosis. The wounds were copiously irrigated with antibiotic impregnated saline. Afterwards, FloSeal was placed to address residual bleeding. Powdered antibiotics were directly poured into the wound to provide for direct antibiosis. Next I turned my attention to closure. Fascial closure was performed with 1-0 Vicryl suture. Subcutaneous tissues were reapproximated with 2-0 Vicryl. The superficial subcutaneous skin was closed with a running Monocryl and Dermabond. Dressings consisted of Tegaderm and 4 x 4 gauze. The patient tolerated the procedure well and will now be admitted to the spine floor for further observation. The details of the entire surgery were related to the patients family/representatives upon the conclusion of the procedure in the family waiting room. Miguel Cornelius M.D. DR: MARIO JOB#: [id number] CC: [place]
[2017-02-27] MEDS: Docusate 100mg cap ORAL SCH ×2 (08:36→18:22)
[2017-02-27] MEDS: Norco 5mg/325mg tab ORAL PRN ×2 (08:37→21:18)
--- NOTE | 2017-02-27 10:10 | 48 Hour Post Anesthesia Eval ---
Post Anesthesia Evaluation Procedure: ALIF L5-S1, PSF L5-S1 Date of Evaluation: Feb 27, 2017 Time of Evaluation: 10:09 Blood Pressure Systolic: 116 0: 68 Pulse Rate: 74 Respiratory Rate: 18 Temperature (Fahrenheit): 97.6 O2 Sat by Pulse Oximetry: 98 Airway: patent Nausea: No Vomiting: No Pain Intensity: 3 Hydration Status: adequate Cardiopulmonary Status: stable Mental Status/LOC: patient returned to baseline Follow-up Care/Observations: n/a Post-Anesthesia Complications: none Follow-up care needed: N/A ABDULKADIR GUPTA M.D. Feb 27, 2017 10:10
[2017-02-27] MEDS: NS w/KCl 20mEq 1,000 ML IV SCH ×2 (10:35→21:18)
[2017-02-27 12:00] VITALS: BP 140/80
[2017-02-27 16:00] VITALS: BP 130/78
[2017-02-27 20:43] VITALS: BP 134/75
--- NOTE | 2017-02-27 22:02 | General Progress Note ---
Assessment/Plan Problem List: (1) HNP (herniated nucleus pulposus), lumbar ICD Codes: M51.26 - Other intervertebral disc displacement, lumbar region SNOMED: 51152325 (2) HLD (hyperlipidemia) ICD Codes: E78.5 - Hyperlipidemia, unspecified SNOMED: 34068425 Status: stable Assessment/Plan Appreicate surgery rec's s/p Stage 1 Anterior Lumbar Interbody Fusion of L5S1 with bone morphogenetic protein and allograft Stage 2 Posterior newton griffin osteotomy pedicle screw fixation on 02/26/17 Post operative recommendations include: - encourage mobilization/ambulation - encourage incentive spirometry to optimize pulmonary hygiene - DVT/GI prophylaxis as appropriate--SCDs - PT/OT - pain control, supportive care, bowel regimen Cont home statin DC planning, possible d/c home tomorrow D/w pt/family, RN, SW/CM, surgery regarding mgmt and dispo Subjective Date patient seen: Feb 27, 2017 Time patient seen: 17:00 ROS Limited/Unobtainable: No Constitutional: Reports: no symptoms HEENT: Reports: no symptoms Cardiovascular: Reports: no symptoms Respiratory: Reports: no symptoms Gastrointestinal/Abdominal: Reports: no symptoms Genitourinary: Reports: no symptoms Neurologic/Psychiatric: Reports: no symptoms Endocrine: Reports: no symptoms Hematologic/Lymphatic: Reports: no symptoms Allergies: Coded Allergies: METHYLISOTHIAZOLINONE (Verified Allergy, Severe, 02/26/17) skin rash BACITRACIN (Verified Allergy, Intermediate, 02/26/17) SKIN RASH COBALT CHLORIDE (Verified Allergy, Intermediate, 02/26/17) SKIN RASH SULFA (SULFONAMIDE ANTIBIOTICS) (Verified Allergy, Unknown, 03/24/15) All Systems: reviewed and negative except above Subjective No acute o/n events POD#1 Afebrile VSS Pain controlled Tolerating PO Passing gas Ambulating Objective Last 24 Hour Vital Signs Date Time Temp Pulse Resp B/P (MAP) Pulse Ox O2 Delivery O2 Flow Rate FiO2 02/27/17 20:43 97.9 60 20 134/75 100 Room Air 02/27/17 16:00 98.0 57 18 130/78 98 Room Air 02/27/17 12:00 97.0 67 19 140/80 96 Room Air 02/27/17 10:10 74 18 98 02/27/17 09:36 97.6 02/27/17 08:00 97.9 74 17 124/72 100 Room Air 02/27/17 04:00 98.9 75 20 106/60 96 Room Air 02/27/17 00:00 98.6 83 20 107/68 97 Room Air 02/26/17 22:53 99.5 Intake and Output 02/27/17 02/28/17 19:00 07:00 Intake Total 1900 ml Output Total 700 ml Balance 1200 ml Intake Oral 800 ml IV Total 1100 ml Output Urine Total 700 ml # Voids 2 Height (Feet): 5 Height (Inches): 8.00 Weight (Pounds): 189 Objective General: alert, cooperative, no distress, appears stated age Head: normocephalic, without obvious abnormality, atraumatic Eyes: conjunctivae/corneas clear. PERRL, EOM's intact Throat: lips, mucosa, and tongue normal. MMM Neck: supple, symmetrical, trachea midline, and no JVD Lungs: clear to auscultation bilaterally Heart: regular rate and rhythm, S1, S2 normal, no murmur, click, rub or gallop Abdomen: soft, non-tender, non-distended, bowel sounds normal; no masses or organomegaly Extremities: extremities normal, atraumatic, no cyanosis or edema Pulses: 2+ and symmetric Skin: skin color, texture, turgor normal; dressing c/d/i Neurologic: grossly normal, no focal deficits Dee Crawford M.D. Feb 27, 2017 22:02
[2017-02-28 00:25] VITALS: BP 127/70
[2017-02-28 04:54] VITALS: BP 116/70
[2017-02-28] MEDS: NS w/KCl 20mEq 1,000 ML IV SCH (06:03)
[2017-02-28 08:00] VITALS: BP 118/72
[2017-02-28] MEDS ORDERED: NORCO 10-325 T1 EACH ORAL (08:00)
[2017-02-28] MEDS: Docusate 100mg cap ORAL SCH (09:13)
[2017-02-28] MEDS ORDERED: Tubing IV Secondary IV ONE (11:11)
--- NOTE | 2017-02-28 22:31 | Discharge Summary ---
DATE OF ADMISSION: 02/26/2017 DATE OF DISCHARGE: 02/28/2017 PROCEDURES PERFORMED DURING ADMISSION: Anterior and posterior lumbar fusion. REASON FOR ADMISSION: Herniated nucleus pulposus, L5-S1. HOSPITAL COURSE/TREATMENT RENDERED: DISCHARGE PHYSICAL EXAM: 1. Patient was ambulating with and without the assistance of physical therapy. 2. Prior to discharge home incision was clean and dry with minimal swelling. 3. Follows commands. 4. Alert and oriented. 5. Vivar discontinued, voiding. 6. Incentive spirometer at bedside. 7. IVF hep locked. MOTOR: Demonstrates expected postoperative bulk and tone. Moves biceps, triceps, and deltoid musculature on command. Moves hip flexors, quadriceps, tibialis anterior, EHL, gastrocsoleus musculature on command as well. TREATMENT RENDERED: 1. Daily nursing care. 2. Physical Therapy. 3. Occupational Therapy. 4. Intravenous medications. 5. Oral medications. 6. Daily postoperative examinations by Spine surgery team. CONDITION OF PATIENT ON DISCHARGE: The condition on discharge is stable for discharge to home. DISCHARGE INSTRUCTIONS: Our specific instructions relating to physical activity, medications diet and follow-up care are detailed in our standard operative folder and were given to this patient prior to surgery. We will however summarize these briefly as stated below. Regarding physical activity we would like the patient to limit their flexion, extension and rotation. We also require a limitation on their bending lifting and twisting. All medication has been called in prior to surgery to their pharmacy of choice. They can resume their regular diet once tolerated. We would like them to shower and limit soaking the wound in a tub/Jacuzzi/the ocean for a period of one month or until the incision is completely healed. We will have them follow up in our office in three weeks time for their regularly scheduled appointment. They understand to call our office tomorrow to schedule the time for their three week followup appointment. The patient will notify us should they experience any increase in the severity of pain, redness/swelling/ or drainage from their incision. Miguel Cornelius M.D. DR: MARIO JOB#: [id number] CC: [place]
== END 2017-02-28 11:12 | disposition home or self-care (01) | DRG 460 ==
LOC: SDSOVERFLO 05:08 → 3E 12:59
DX: M51.17 Intervertebral disc disorders with radiculopathy, lumbosacral region (principal); E78.5 Hyperlipidemia, unspecified; M48.07 Spinal stenosis, lumbosacral region; M21.372 Foot drop, left foot; L71.9 Rosacea, unspecified; L30.9 Dermatitis, unspecified
CPT/HCPCS: 36415; 72020; 76001; 86850; 86900; 86901; 87081; 94003; 94150; J2250; J2405; J2710